=== PATIENT | female | born 1945 | race Caucasian/White ===

== ENCOUNTER → 2017-10-18 | Outpatient (CLI) | payer MEDICARE, MEDICAID ==
[~2017-10-18] MED LIST: ASPI-757 PO; CETI-176 PO; FLUT16SP19 NS; FURO-45 PO; LOR5/325 PO; PANT40TA65 PO; SPIR25TA80 PO; TRAM-420 PO; WARF-1 PO
--- NOTE | 2017-10-18 14:54 | RADIOLOGY IMAGING REPORT ---
FACILITY: [facility] PATIENT NAME: Yaima Lomeli : 1945 MR: [id number] V: [id number] EXAM DATE: ORDERING PHYSICIAN: SHAN HUSESIN TECHNOLOGIST: Location: [facility] Patient: Yaima Lomeli : 1945 Visit/Account:[id number] Date of Sevice: 10/18/2017 CHEST PA AND LAT Indication: Chronic cough, hoarseness, allergies. Comparison: None. Findings: Lungs: Clear. Mediastinum/pulmonary vasculature: Heart size and pulmonary vasculature are normal. Bones/soft tissues: Normal. IMPRESSION: Clear lungs. Report Dictated By: Dougie Foreman at 10/18/2017 2:49 PM Report E-Signed By: Dougie Foreman at 10/18/2017 2:50 PM WSN:[id number]
== END ==
LOC: RAD 14:00
PROVIDERS: ATTEND Internal Medicine
DX: R05 Cough (principal)
CPT/HCPCS: 71046

== ENCOUNTER 2018-03-20 20:07 | Inpatient (IN) | payer MEDICARE, MEDICAID ==
[~2018-03-20] VITALS: Ht 175.3 cm; Wt 61.7 kg
[2018-03-20 22:38] VITALS: BP 122/67
[2018-03-20] MEDS ORDERED: ACETAMINOPHEN 325 MG TAB PO PRN (23:15)
[2018-03-20] MEDS ORDERED: MAG HYD/AL HYD/SIMETH 30ML UDC PO PRN (23:15)
[2018-03-21 06:02] VITALS: BP 122/62
[2018-03-21] MEDS: MULTIVITAMINS PO SCH (08:22)
[2018-03-21] MEDS ORDERED: IBUPROFEN 600 MG TAB PO PRN (11:40)
[2018-03-21] MEDS ORDERED: CETIRIZINE HCL 10 MG TAB PO PRN (11:40)
[2018-03-21] MEDS: SPIRONOLACTONE 25 MG TAB PO SCH (12:03)
[2018-03-21] MEDS: ASPIRIN 325 MG ENTERIC COATED PO SCH (12:03)
[2018-03-21 13:10] VITALS: BP 120/62
[2018-03-21 20:02] VITALS: BP 142/67
[2018-03-22 06:28] VITALS: BP 158/85
[2018-03-22] MEDS: SPIRONOLACTONE 25 MG TAB PO SCH (08:30)
[2018-03-22] MEDS: ASPIRIN 325 MG ENTERIC COATED PO SCH (08:31)
[2018-03-22] MEDS: MULTIVITAMINS PO SCH (08:31)
--- NOTE | 2018-03-22 09:14 | SCHAAF H&P ---
DATE OF ADMISSION: March 20, 2018 ATTENDING PHYSICIAN Hank Negro MD Patient was seen on March 21, 2018 at approximately 1100 hours for note concerning this dictation. PRESENTING PROBLEM, CHIEF COMPLAINT "Overwhelming concerns." HISTORY OF PRESENT ILLNESS This is so far pleasant 72-year-old female who was admitted without incident through the emergency room for increasing depressive concerns. Patient currently has nowhere to live and out of money. Patient reports depressing concerns increasing. Patient may have a degree of altered mental status as well in the ER. Because of this, patient was admitted on a voluntary basis. Patient is cooperative. She reports difficulty relationships with multiple family members including her oldest son, who lives in [place]. She reports that her [id number]-[id number]-lco has driven a wedge between them. Patient also having difficult communications with another son who lives in [place]. Patient again currently without any financial resources and recently homeless. Patient reports being in the [facility] for the last 2-1/2 years. She moved here to be closer to her family after living long-term in [place], where she wishes to some day return. Patient has been using services at times through [facility] and uses the [employer] for transportation as she does not currently have a vehicle either. When asked about specific symptoms, patient reports recently her appetite has increased. She has been eating more. She says her energy and concentration are poor. She still has interest in shopping and things like this but, again, finances are limited. Patient reports her sleep is sporadic at times and she sometimes worries about the identifiable stressors and where she will live. She reports her mood is decreased. She denies any suicidal intent or suicidal thoughts currently. Patient denies a history of compa, psychosis, panic attacks, PTSD, phobias, anorexia or bulimia. She reports some degree of wanting to be keeping things clean and handwashing but these do not seem to meet criteria for obsessive compulsive disorder. Patient has never engaged in self- harm and denies any other psychiatric complaints. MENTAL HEALTH HISTORY Unremarkable. The patient has never had inpatient treatment. She has never had outpatient treatment either through psychiatrists, counselors or therapists and has no history of suicide attempt. She has never been on psychiatric meds. FAMILY PSYCHIATRIC HISTORY The patient reports no known alcohol or drug use in the family. She does report that her brothers may have suffered from bipolar disorder and a younger sister, who is now . PAST MEDICAL HISTORY Significant for seasonal allergies, which she takes Zyrtec for. She has had a hysterectomy in the past. She has a history of embolism and DVT. She takes aspirin. She reports overall good health. She has recently started on spironolactone for some elevated blood pressure. SOCIAL HISTORY The patient was born in [place] and raised there. Parents were at the time of her . They stayed together. They were for over 60 years. They are both now. Patient has two brothers and one sister, who are . Apparently, patient is not in good standing with her brothers. Patient is a high school graduate. She had two years of college experience. Patient reports being retired for around 20 years now. 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 She currently gets by on around $740/month, which appears to be social security income. She had a good childhood growing up. She reports never being in the . She was once, once. They had two sons and, again, this relationship remains strained as well. She has no current significant other. She has been living alone since recently exiting the [employer]. It appears that she may have left voluntarily or be evicted; it is not known yet. Patient is vague as to details. Patient has very limited financial resources for any further living in [facility]. Patient has no vehicle. LEGAL HISTORY Unremarkable. SUBSTANCE ABUSE HISTORY Patient reports none. PHYSICAL EXAMINATION Please see emergency room note. Notable for 72-year-old female. No acute medical distress. Vital signs: Temperature 97.5, pulse 92, respiratory rate 15, blood pressure 151/70, pulse oximetry 91% on room air. LABORATORY DATA CBC unremarkable. CMP overall unremarkable. TSH 2.27, in normal range. Urinalysis: screen negative. Toxicology screen: Negative. Nondetectable serum alcohol level. MENTAL STATUS EXAMINATION GENERAL APPEARANCE, BEHAVIOR AND ATTITUDE: This is 72-year-old female overall so far polite with this provider and treatment team staff. Patient appears to mainly be interested in getting help with a place to live and psychiatric concerns are minimal outside of this stressor. Patient nontearful, making good eye contact. Well-groomed. No psychomotor agitation or retardation. SPEECH: Within normal limits. Regular rate, rhythm, volume and tone. MOOD: Described as anxious about current concerns. AFFECT: Minimally constricted and mood-congruent. THOUGHT PROCESSES: Logical and goal-directed, no loose associations or flight of ideas. THOUGHT CONTENT: Free of auditory or visual hallucinations, ideas of reference, thought broadcastings, delusions, obsessions or compulsions. The patient is denying suicidal or homicidal ideations. SENSORIUM: Clear. COGNITION: Alert and oriented to person, place, time and situation. MEMORY: Immediate, recent and remote estimated intact. INTELLIGENCE: Average, based on interview. INSIGHT AND JUDGMENT: Considered grossly intact. Patient may have some underlying maladaptive personality traits which have alienated her relationships with others. Patient having very limited resources during cold months in [place]. ASSESSMENT This is a cooperative 72-year-old female who is interacting well with this provider and treatment team staff. Patient presenting to the emergency room voluntarily with increasing anxiety and depressive concerns regarding multiple housing, financial and relationship stressors. We will continue to evaluate. We will help patient find senior living. DIAGNOSES 1. Adjustment disorder with anxious mood, rule out personality disorder unspecified. 2. Social stressors including financial limitations, homelessness and strained relationships with family members. PLAN 1. Admit to the unit. 2. Necessary precautions will be implemented. 3. The patient will participate in individual and group therapy. 4. Medications will be reviewed if necessary. 5. Collateral information to be obtained. 6. Estimated length of stay 3-5 days. MTDD
--- NOTE | 2018-03-22 13:35 | [facility] Progress Note ---
[facility] - Subjective Progress Notes Subjective Patient remains homeless at this time, refusing to contact family members to see if they could be of assistance. Patient interacting in a manner with staff that would be indicative of underlying maladaptive personality traits. Will set up likely discharge to homeless skilled nursing to be planned for tomorrow, if [facility] is unable to aid with finance. Patient continues to exhibit situational anxiety regarding current social stressors. Will start low dose trazodone tonight. Suicidal Ideation: None Homicidal Ideation: None [facility] - Objective Physical Exam Vital Signs Vital Signs Date Time Temp Pulse Resp B/P (MAP) Pulse Ox O2 Delivery O2 Flow Rate FiO2 03/22/18 06:28 98.4 80 16 158/85 (109) 94 Room Air Muscle Strength and Tone: WNL Gait and Station: Steady [facility] Medications Reviewed: Side Effects, Benefits of Medication, Risks Allergies Reviewed: Yes Mental Status Exam General Appearance: Casual, Well Groomed, Good Eye Contact, Cooperative, P olite, Good Interaction; No Unkept, No Tearful, No Psychomotor Agitation, No Psychomotor Retardation, No Bizarre Mannerisms, No Tics Speech: Clear, Spontaneous, Normal Rate, Normal Rhythm, Normal Volume, Normal Tone Mood: Dysthmic/Depressed Affect: Calm, Sad, Tearful, Anxious Thought Process: Organized, Logical, Goal Directed; No Loose Associations, No Flight of Ideas Thought Content: No Suicidal Ideation, No Homicidal Ideation, No Delusions, No Auditory Halllucinations, No Visual Hallucinations, No Thought Broadcasting, No Ideas of Reference, No Obsessions, No Compulsions Sensorium: Clear Cognition: Alert & Oriented-Person, Alert & Oriented-Place, Alert & Oriented- Time, Qngac-Fowcmzuu-Kbnrujtnf Memory: Immediate, Recent, Remote Intelligence: Average Insight Judgment: Poor (limited by likely longstanding maladaptive personality traits. ) [facility] Assessment and Plan Iunt-[id number] Encounter Date: Mar 22, 2018 Uyex-ur-Ztqu Encounter Time: 10:00 [facility] Plan: Admit to Unit, Necessary Precautions, Individual/Group Therapy, Admin/Titrate Meds Tobacco Medications: Not Appropriate Condition Multpiple Antipsychotics Used: No Problems: (1) Adjustment disorder with anxious mood Optional Permanent Comment: related to limited resources, and current homelessness Last Edited By: Opal Mason on Mar 22, 2018 13:34 Status: Acute (2) Parent-biological child relationship problem Status: Chronic (3) Personality disorder, unspecified Status: Chronic Condition 1. start trazodone. 2. plan for discharge tomorrow. OPAL MASON MD Mar 22, 2018 13:35
[2018-03-22 14:59] VITALS: BP 132/68
[2018-03-22] MEDS ORDERED: traZODone HCL 50 MG TAB PO SCH (21:00)
[2018-03-22 22:20] VITALS: BP 152/70
[2018-03-23 06:22] VITALS: BP 131/70
[2018-03-23] MEDS: MULTIVITAMINS PO SCH (08:03)
[2018-03-23] MEDS: SPIRONOLACTONE 25 MG TAB PO SCH (08:03)
[2018-03-23] MEDS: ASPIRIN 325 MG ENTERIC COATED PO SCH (08:03)
[2018-03-23] MEDS ORDERED: TRAZ50TA34 PO (09:12)
[2018-03-23] MEDS ORDERED: ASPI325T22 PO (09:13)
[2018-03-23] MEDS ORDERED: MULT-1379 PO (09:13)
[2018-03-23] MEDS ORDERED: IBUP600T22 PO (09:14)
--- NOTE | 2018-03-24 13:08 | SCHAAF DISCHARGE ---
DATE OF ADMISSION: March 20, 2018. DATE OF DISCHARGE: March 23, 2018. ATTENDING PHYSICIAN Hank Negro MD The patient was seen on March 23, 2018 at approximately 09:00 hours for note concerning this dictation. FINAL DIAGNOSES PER DSM-V 1. Adjustment disorder with anxious mood. 2. Family relational problems. 3. Rule out personality disorder, unspecified. REASON FOR ADMISSION This is an overall polite, cooperative 72-year-old female who is experiencing limited finances and current homelessness. The patient presented to the emergency room with increasing depressive symptoms. It was thought best that patient be admitted for depressive concerns that were increasing at a rapid pace and overall social stressors which were becoming extreme. The patient was admitted to the unit without incident. The patient was responsive to care, took an active role in individual and group therapy. The patient declined wanting to contact any of her relatives including her own immediate family and her adult children as she has had a falling out with them. The patient again having very limited resources and currently homeless. The patient was agreeable to discharging to homeless snf in [place] and continued care there. The patient's mood was good at time of discharge and no parasuicidal behaviors were seen on the unit. PHYSICAL EXAMINATION Please see emergency room note. Notable for a 72-year-old female in no acute medical distress. Vital signs at the time of admission: Temperature 97.5, pulse 92, respiratory rate 15, blood pressure 151/70 and pulse oximetry 91% on room air. Vital signs at the time of discharge: Temperature 98.4, pulse 85, respiratory rate 16, blood pressure 131/70 and pulse oximetry 92% on room air. LABORATORY DATA At the time of admission TSH 2.27. CBC unremarkable. CMP unremarkable overall. Toxicology screen negative with a nondetectable serum alcohol. Urine screen negative. MENTAL STATUS EXAMINATION GENERAL APPEARANCE, BEHAVIOR AND ATTITUDE: This is well groomed 72-year-old female, appears stated age, making good eye contact. No bizarre mannerisms or tics and no periods of tearfulness. No psychomotor agitation, retardation. SPEECH: Within normal limits. Regular rate, rhythm, volume and tone. MOOD: Described as improved and okay. AFFECT: Full and bright at times and mood-congruent overall. THOUGHT PROCESSES: Logical and goal-directed, no loose associations or flight of ideas. THOUGHT CONTENT: Free of auditory or visual hallucinations, ideas of reference, thought broadcastings, delusions, obsessions or compulsions. The patient is adamantly denying suicidal or homicidal ideation. SENSORIUM: Clear. COGNITION: Alert and oriented to person, place, time and situation. MEMORY: Immediate, recent and remote was estimated intact. INTELLIGENCE: Average, based on interview. INSIGHT AND JUDGMENT: Some underlying maladaptive stress coping mechanisms and maladaptive personally traits likely exist in this 72-year-old patient with no prior history of inpatient psychiatric services. RESULTS OF TESTING Imaging: None. Laboratory data: See above. Psychological testing: Not done. CONSULTATIONS None. TREATMENT Patient received medications, participated in individual and group therapy. HOSPITAL COURSE The patient took an active role in her treatment. She worked well with therapist and this provider and took an active role in her treatment. CONDITION OF PATIENT ON DISCHARGE Stable. Considered a minimal risk to herself or others, appropriate for outpatient care. DISPOSITION The patient was discharged to the care of an adult friend who picked her up from the hospital. The patient would then a bus, [facility] up there with [facility]. The crisis line was given should symptoms return DISCHARGE MEDICATIONS 1. Aldactone 25 mg daily. 2. Trazodone 50 mg 1-2 p.o. q nightly p.r.n. as needed for sleep. 3. Ecotrin enteric coated Aspirin 325 mg daily. 4. Multivitamin with minerals daily. 5. The patient could continue Zyrtec 10 mg daily p.r.n. for any symptoms of allergies. 6. The patient could also use Motrin as needed for any pain. The risks, benefits and alternatives of the above discharge plan were discussed. Informed consent was given to proceed with the above discharge plan by this competent patient, [facility] and [facility]. JAMISON
== END 2018-03-23 13:01 | disposition home or self-care (01) | DRG 882 ==
LOC: BHS 20:07
PROVIDERS: ADMIT Psychiatry & Neurology Psychiatry; ATTEND Psychiatry & Neurology Psychiatry
DX: F43.22 Adjustment disorder with anxiety (principal); F60.9 Personality disorder, unspecified; Z59.0 Homelessness; Z63.9 Problem related to primary support group, unspecified; Z59.6 Low income; Z81.8 Family history of other mental and behavioral disorders; Z90.710 Acquired absence of both cervix and uterus; Z86.718 Personal history of other venous thrombosis and embolism; Z86.711 Personal history of pulmonary embolism

== ENCOUNTER → 2018-10-13 | Outpatient (CLI) | payer MEDICARE, MEDICAID ==
[~2018-10-13] MED LIST changes: +ASPI325T22 PO; +IBUP600T22 PO; +MULT-1379 PO; +TRAZ50TA52 PO
[2018-10-13 10:39] LABS: PLATELET COUNT, AUTOMATED 291 K/uL (150-450)
[2018-10-13 12:15] LABS: INR 0.92
== END ==
LOC: LAB 09:48
PROVIDERS: ATTEND Physician Assistant
DX: R53.83 Other fatigue (principal); R60.9 Edema, unspecified; L68.8 Other hypertrichosis; D72.828 Other elevated white blood cell count
CPT/HCPCS: 36415; 82040; 82247; 82310; 82374; 82435; 82565; 82728; 82947; 83036; 83540; 83735; 84075; 84132; 84146; 84155; 84295; 84439; 84443; 84450; 84460; 84520; 84630; 85025; 85300; 85303; 85384; 85610; 86038